=== PATIENT | male | born 1975 | race Caucasian/White ===

== ENCOUNTER 2016-12-31 15:40 | Emergency (ER) | payer OTHER, SELFPAY ==
[2016-12-31] MEDS ORDERED: Sodium Chloride 0.9% 1000 ML 1,000 ML IV STA ×2 (15:56→16:32)
--- NOTE | 2016-12-31 16:01 | ERPHSYRPT ---
- History of Present Illness Time Seen by Provider: 12/31/16 15:54 Source: patient Exam Limitations: no limitations Patient Subjective Stated Complaint: weakness Triage Nursing Assessment: states he was putting in a floor and got overheated adn dizzy. boss drove him home ' and dropped me off becasue he was mad becasue i couldnt help him finish a job' pt was outside and got nauseated and called ems. on arrival, dry heave x1. staets he ate lunch at noon and vomited shortly after. denies pain. 'i just got overheated' skin warm and dry Physician History: 41-year-old white male arrives with complaint generalized weakness nausea vomiting symptoms since this afternoon According to the patient he was putting in the floor he felt like he became overheated he became nauseous he has general weakness he has no focal weakness no problems speaking or moving. He feels like he became overheated. Past medical history. GERD. Past surgical history ORIF of right foot. Timing/Duration: today (this afternoon) Severity: moderate Modifying Factors: Improves With: other (patient feels like he got overheated while putting in the floor). Worsens With: eating, immobilization, medication, movement, acetaminophen, ibuprofen, nothing Associated Symptoms: nausea, vomiting, weakness, No abdominal pain, No shortness of breath, No heartburn, No diaphoresis, No cough, No chills, No chest pain, No fever, No headaches, No loss of appetite, No malaise, No rash, No syncope, No seizure Allergies/Adverse Reactions: No Known Drug Allergies Allergy (Verified 12/31/16 15:51) Home Medications: Esomeprazole Magnesium [Nexium] 40 mg PO DAILY 03/14/15 [History] Hx Tetanus, Diphtheria Vaccination/Date Given: Yes Hx Influenza Vaccination/Date Given: No Hx Pneumococcal Vaccination/Date Given: No Immunizations Up to Date: Yes - Review of Systems Constitutional: Malaise, Weakness, No Fever, No Chills, No Fatigue, No Lethargy , No Night Sweats, No Weight Loss Eyes: No Symptoms Ears, Nose, & Throat: No Symptoms Respiratory: Dyspnea, No Cough Cardiac: No Chest Pain, No Edema, No Syncope Abdominal/Gastrointestinal: Nausea, Vomiting, No Abdominal Pain, No Diarrhea, No Constipation, No Hematemesis, No Hematochezia, No Melena, No Dysphagia, No Appetite Changes Genitourinary Symptoms: No Dysuria Musculoskeletal: No Back Pain, No Neck Pain Skin: No Symptoms, No Rash Neurological: No Dizziness, No Focal Weakness, No Sensory Changes Psychological: No Symptoms Endocrine: No Symptoms All Other Systems: Reviewed and Negative - Past Medical History Pertinent Past Medical History: Yes Neurological History: No Pertinent History ENT History: No Pertinent History Cardiac History: No Pertinent History Respiratory History: No Pertinent History Endocrine Medical History: No Pertinent History Musculoskeletal History: No Pertinent History GI Medical History: GERD History: No Pertinent History Psycho-Social History: No Pertinent History Male Reproductive Disorders: No Pertinent History - Past Surgical History Past Surgical History: Yes Neuro Surgical History: No Pertinent History Cardiac: No Pertinent History Respiratory: No Pertinent History Gastrointestinal: No Pertinent History Genitourinary: No Pertinent History Musculoskeletal: Orthopedic Surgery Male Surgical History: No Pertinent History Other Surgical History: right leg fx with plate and screws placed - Social History Smoking Status: Never smoker Exposure to second hand smoke: Yes Drug Use: none Patient Lives Alone: No - Nursing Vital Signs Nursing Vital Signs: Initial Vital Signs Temperature 97.3 F Temperature Source Oral Pulse Rate 75 Respiratory Rate 18 Blood Pressure [] 113/68 Pain Intensity 0 - Physical Exam General Appearance: mild distress Eye Exam: PERRL/EOMI, eyes nml inspection Ears, Nose, Throat Exam: normal ENT inspection, TMs normal, pharynx normal, moist mucous membranes Neck Exam: normal inspection, non-tender, supple, full range of motion Respiratory Exam: normal breath sounds, lungs clear, No respiratory distress Cardiovascular Exam: regular rate/rhythm, normal heart sounds, normal peripheral pulses Gastrointestinal/Abdomen Exam: soft, normal bowel sounds, No tenderness, No mass Back Exam: normal inspection, normal range of motion, No CVA tenderness, No vertebral tenderness Extremity Exam: normal inspection, normal range of motion, pelvis stable Neurologic Exam: alert, oriented x 3, cooperative, normal mood/affect, nml cerebellar function, nml station & gait, sensation nml, No motor deficits Skin Exam: normal color, warm, dry, No rash Lymphatic Exam: No adenopathy SpO2 Interpretation: normal (100%) SpO2: 100 Oxygen Delivery: Room Air - Course Nursing assessment & vital signs reviewed: Yes EKG Interpreted by Me: RATE (68 bpm), Sinus Rhythm, NORMAL AXIS, Other (EKG: Sinus rhythm 68 bpm normal axis no acute ST or T wave changes no acute changes as compared to March 14, 2015 essentially normal EKG) - Radiology Exams Chest X-ray Interpretation: Discussed w/ radiologist, Other (no acute disease process) Ordered Tests: Active Orders 24 hr Category Date Time Status EKG-ER Only STAT Care 12/31/16 15:56 Active IV Insertion STAT Care 12/31/16 15:56 Active CHEST 1 VIEW (PORTABLE) Stat Exams 12/31/16 15:57 Completed AMYLASE Stat Lab 12/31/16 16:00 Completed CBC W DIFF Stat Lab 12/31/16 16:00 Completed CMP Stat Lab 12/31/16 16:00 Completed CULTURE,URINE Stat Lab 12/31/16 17:52 Received Ethyl Alcohol,Urine Stat Lab 12/31/16 17:52 Completed LIPASE Stat Lab 12/31/16 16:00 Completed TROPONIN Stat Lab 12/31/16 16:00 Completed UA W/ MICROSCOPIC Stat Lab 12/31/16 17:52 Completed Urine Triage Profile Stat Lab 12/31/16 17:52 Completed Medication Summary Discontinued Medications Generic Name Dose Route Start Last Admin Trade Name Freq PRN Reason Stop Dose Admin Sodium Chloride 1,000 mls @ 999 mls/hr 12/31/16 15:56 12/31/16 16:05 Sodium Chloride 0.9% 1000 Ml IV 12/31/16 16:56 999 mls/hr .Q1H1M STA Administration Sodium Chloride Confirm 12/31/16 16:04 Sodium Chloride 0.9% 1000 Ml Administered 12/31/16 16:05 Dose 1,000 mls @ ud .ROUTE .STK-MED ONE Sodium Chloride 1,000 mls @ 999 mls/hr 12/31/16 16:32 12/31/16 17:01 Sodium Chloride 0.9% 1000 Ml IV 12/31/16 17:32 999 mls/hr .Q1H1M STA Administration Sodium Chloride Confirm 12/31/16 16:37 Sodium Chloride 0.9% 1000 Ml Administered 12/31/16 16:38 Dose 1,000 mls @ ud .ROUTE .STK-MED ONE Ondansetron HCl 4 mg 12/31/16 16:14 12/31/16 16:17 Zofran 4 Mg/2 Ml Vial IV 12/31/16 16:15 4 mg STAT ONE Administration Ondansetron HCl Confirm 12/31/16 16:15 Zofran 4 Mg/2 Ml Vial Administered 12/31/16 16:16 Dose 4 mg .ROUTE .STK-MED ONE Potassium Chloride 20 meq 12/31/16 16:33 12/31/16 16:38 Klor Con 10 Meq PO 12/31/16 16:34 20 meq STAT ONE Administration Potassium Chloride Confirm 12/31/16 16:37 Klor Con 10 Meq Administered 12/31/16 16:38 Dose 20 meq PO .STK-MED ONE Lab/Rad Data: Laboratory Result Diagrams 12/31/16 16:00 12/31/16 16:00 Laboratory Results 12/31/16 12/31/16 12/31/16 Range/Units 17:52 17:52 17:52 WBC (4.0-10.5) K/mm3 RBC (4.1-5.6) M/mm3 Hgb (12.5-18.0) gm/dl Hct (42-50) % MCV (78-100) fl MCH (26-32) pg MCHC (32-36) g/dl RDW (11.5-14.0) % Plt Count (150-450) K/mm3 MPV (6-9.5) fl Gran % (36.0-66.0) % Lymphocytes % (24.0-44.0) % Monocytes % (0.0-12.0) % Eosinophils % (0.00-5.0) % Basophils % (0.0-0.4) % Basophils # (0-0.4) Sodium (136-145) mEq/L Potassium (3.5-5.1) mEq/L Chloride (98-107) mEq/L Carbon Dioxide (21-32) mEq/L Anion Gap (5-15) MEQ/L BUN (9-20) mg/dL Creatinine (0.55-1.30) mg/dl Estimated GFR ML/MIN Glucose (70-110) MG/DL Calcium (8.5-10.1) mg/dL Total Bilirubin (0.2-1.0) mg/dL AST (15-37) U/L ALT (12-78) U/L Alkaline Phosphatase (46-116) U/L Troponin I (0.000-0.056) ng/ml Serum Total Protein (6.4-8.2) gm/dL Albumin (3.4-5.0) g/dL Amylase (25-115) U/L Lipase (73-393) U/L Ur Collection Type VOID Urine Color YELLOW (YELLOW) Urine Appearance CLEAR (CLEAR) Urine pH 8.0 8.0 (5-6) Ur Specific Armstrong 1.015 (1.005-1.025) Urine Protein TRACE (Negative) Urine Ketones MODERATE (NEGATIVE) Urine Blood NEGATIVE (0-5) Sergio/ul Urine Nitrite NEGATIVE (NEGATIVE) Urine Bilirubin NEGATIVE (NEGATIVE) Urine Urobilinogen NORMAL (0-1) mg/dL Ur Leukocyte Esterase NEGATIVE (NEGATIVE) Urine Microscopic RBC 2-5 (0-2) /HPF Urine Microscopic WBC 15-25 (0-5) /HPF Ur Epithelial Cells FEW (FEW) /HPF Urine Bacteria FEW (NEGATIVE) /HPF Urine Mucus SLIGHT (NEGATIVE) /HPF Urine Glucose NEGATIVE (NEGATIVE) mg/dL Urine Opiates Level NEG. (NEGATIVE) Ur Methadone NEG. (NEGATIVE) Urine Barbiturates NEG. (NEGATIVE) Ur Phencyclidine (PCP) NEG. (NEGATIVE) Urine Amphetamine NEG. (NEGATIVE) U Benzodiazepine Level NEG. (NEGATIVE) Urine Cocaine NEG. (NEGATIVE) Urine Marijuana (THC) POS. (NEGATIVE) Urine Ethyl Alcohol < 3 (0.00-20) mg/dl Specimen Received 12/31/16 1800 12/31/16 12/31/16 Range/Units 16:00 16:00 WBC 11.2 H (4.0-10.5) K/mm3 RBC 5.08 (4.1-5.6) M/mm3 Hgb 14.9 (12.5-18.0) gm/dl Hct 42.8 (42-50) % MCV 84.3 (78-100) fl MCH 29.3 (26-32) pg MCHC 34.8 (32-36) g/dl RDW 13.3 (11.5-14.0) % Plt Count 261 (150-450) K/mm3 MPV 10.2 H (6-9.5) fl Gran % 78.0 H (36.0-66.0) % Lymphocytes % 14.8 L (24.0-44.0) % Monocytes % 6.3 (0.0-12.0) % Eosinophils % 0.7 (0.00-5.0) % Basophils % 0.2 (0.0-0.4) % Basophils # 0.02 (0-0.4) Sodium 144 (136-145) mEq/L Potassium 3.3 L (3.5-5.1) mEq/L Chloride 106 (98-107) mEq/L Carbon Dioxide 20.1 L (21-32) mEq/L Anion Gap 21.4 H (5-15) MEQ/L BUN 22 H (9-20) mg/dL Creatinine 1.40 H (0.55-1.30) mg/dl Estimated GFR 59 ML/MIN Glucose 156 H (70-110) MG/DL Calcium 9.5 (8.5-10.1) mg/dL Total Bilirubin 0.70 (0.2-1.0) mg/dL AST 23 (15-37) U/L ALT 26 (12-78) U/L Alkaline Phosphatase 58 (46-116) U/L Troponin I < 0.017 (0.000-0.056) ng/ml Serum Total Protein 7.9 (6.4-8.2) gm/dL Albumin 4.2 (3.4-5.0) g/dL Amylase 47 (25-115) U/L Lipase 113 (73-393) U/L Ur Collection Type Urine Color (YELLOW) Urine Appearance (CLEAR) Urine pH (5-6) Ur Specific Armstrong (1.005-1.025) Urine Protein (Negative) Urine Ketones (NEGATIVE) Urine Blood (0-5) Sergio/ul Urine Nitrite (NEGATIVE) Urine Bilirubin (NEGATIVE) Urine Urobilinogen (0-1) mg/dL Ur Leukocyte Esterase (NEGATIVE) Urine Microscopic RBC (0-2) /HPF Urine Microscopic WBC (0-5) /HPF Ur Epithelial Cells (FEW) /HPF Urine Bacteria (NEGATIVE) /HPF Urine Mucus (NEGATIVE) /HPF Urine Glucose (NEGATIVE) mg/dL Urine Opiates Level (NEGATIVE) Ur Methadone (NEGATIVE) Urine Barbiturates (NEGATIVE) Ur Phencyclidine (PCP) (NEGATIVE) Urine Amphetamine (NEGATIVE) U Benzodiazepine Level (NEGATIVE) Urine Cocaine (NEGATIVE) Urine Marijuana (THC) (NEGATIVE) Urine Ethyl Alcohol (0.00-20) mg/dl Specimen Received - Progress Progress: improved Progress Note: 12/31/16 18:31 Patient is feeling better after 2 L of normal saline. Patient does have 15-25 white cells in his urine. He is able to keep fluids down at this time. Will discharge with Bactrim, Zofran patient to rest tomorrow. - Departure Time of Disposition: 18:32 Departure Disposition: Home Clinical Impression: Heat exhaustion Qualifiers: Encounter type: initial encounter Qualified Code(s): T67.5XXA - Heat exhaustion , unspecified, initial encounter Nausea and vomiting Qualifiers: Vomiting type: unspecified Vomiting Intractability: non-intractable Qualified Code(s): R11.2 - Nausea with vomiting, unspecified UTI (urinary tract infection) Qualifiers: Urinary tract infection type: site unspecified Hematuria presence: without hematuria Qualified Code(s): N39.0 - Urinary tract infection, site not specified Condition: Fair Critical Care Time: No Additional Instructions: Return home. Plenty of fluids clear fluids only 24-48 hours if nausea and vomiting. Bactrim DS one orally twice a day for 10 days. Zofran one orally every 4-6 hours as needed for nausea or vomiting. Follow-up with your family doctor. Return for acute distress or for severe symptoms. Prescriptions: Ondansetron [Zofran Odt] 4 mg PO Q4-6HPRN PRN #10 tab.rapdis PRN Reason: nausea and voming Smz/Tmp Ds Tablet [Bactrim Ds Tablet] 1 tab PO BID #20 tablet
[2016-12-31] MEDS ORDERED: Sodium Chloride 0.9% 1000 ML 1,000 ML ONE ×2 (16:04→16:37)
[2016-12-31 16:12] LABS: BASOPHIL % 0.2 % (0.0-0.4); Eosinophil % 0.7 % (0.00-5.0); Lymphocytes % 14.8 % (24.0-44.0); Mean Cell Volume 84.3 fl (78-100); Mean Corpuscular Hemoglobin 29.3 pg (26-32); Mean Platelet Volume 10.2 fl (6-9.5); Monocytes % 6.3 % (0.0-12.0); Platelet Count 261 K/mm3 (150-450); Red Blood Count 5.08 M/mm3 (4.1-5.6); Red Cell Distribution Width 13.3 % (11.5-14.0); White Blood Count 11.2 K/mm3 (4.0-10.5)
--- NOTE | 2016-12-31 16:13 | XRAY ---
Indication: Short of breath. Vomiting. Weakness. Comparison: May 19, 2014. Portable chest better inflated today and remains clear. Heart and mediastinal structures within normal limits for AP portable technique. Bony thorax intact. Impression: Nonacute chest.
[2016-12-31] MEDS ORDERED: Zofran 4 MG/2 ML VIAL IV ONE (16:14)
[2016-12-31] MEDS ORDERED: Zofran 4 MG/2 ML VIAL ONE (16:15)
[2016-12-31 16:28] LABS: ALBUMIN 4.2 g/dL (3.4-5.0); ALKALINE PHOSPHATASE 58 U/L (46-116); ANION GAP 21.4 MEQ/L (5-15); BLOOD UREA NITROGEN 22 mg/dL (9-20); CHLORIDE 106 mEq/L (98-107); Carbon Dioxide 20.1 mEq/L (21-32); Glucose 156 MG/DL (70-110); LIPASE 113 U/L (73-393); Potassium 3.3 mEq/L (3.5-5.1); SGOT/AST 23 U/L (15-37); SGPT/ALT 26 U/L (12-78); SODIUM 144 mEq/L (136-145); Total Protein 7.9 gm/dL (6.4-8.2)
[2016-12-31 16:29] LABS: TROPONIN < 0.017 ng/ml (0.000-0.056)
[2016-12-31] MEDS ORDERED: Klor Con 10 MEQ PO ONE ×2 (16:33→16:37)
[2016-12-31 18:25] LABS: Bilirubin NEGATIVE (NEGATIVE); Blood NEGATIVE Ery/ul (0-5); COMPLETE URINE MICROSCOPIC? YES; Collection Type VOID; Glucose NEGATIVE (NEGATIVE); Leukocyte Esterase NEGATIVE (NEGATIVE); Mucus SLIGHT /HPF (NEGATIVE); WBC 15-25 /HPF (0-5)
[2016-12-31 18:26] LABS: ADD URINE CULTURE? YES (NO); Bacteria FEW /HPF (NEGATIVE); Epithelial Cells FEW /HPF (FEW)
[2016-12-31 18:55] VITALS: BP 126/70; PULSE 78; O2SAT 98
== END 2016-12-31 18:50 | disposition home or self-care (01) ==
LOC: ED 15:40
DX: T67.5XXA Heat exhaustion, unspecified, initial encounter (principal); R11.2 Nausea with vomiting, unspecified; N39.0 Urinary tract infection, site not specified
CPT/HCPCS: 36000; 36415; 71010; 80053; 80307; 80320; 81000; 82150; 83690; 83986; 84484; 85025; 87086; 93005; 96360; 96361; 96374; 99284; 99285; J2405; A9270-GY

== ENCOUNTER 2019-09-26 06:46 | Day surgery (SDC) | payer BC ==
[~2019-09-26 06:46] MED LIST: Lactated Ringers 1,000 ML IV ONE; Lactated Ringers 1,000 ML IV SCH
[2019-09-26] MEDS ORDERED: Lactated Ringers 1,000 ML IV SCH (07:00)
[2019-09-26] MEDS ORDERED: DIPRIVAN 200 MG/20 ML IV ONE ×2 (07:15→08:14)
[2019-09-26] MEDS ORDERED: Ketamine HCl 50 MG/ML ONE (07:17)
[2019-09-26 09:22] VITALS: BP 118/65; PULSE 64; O2SAT 95
--- NOTE | 2019-09-26 10:44 | OP ---
SURGERY DATE/TIME: 09/26/2019 0759 PREOPERATIVE DIAGNOSIS: Change in bowel habits and abdominal pain. POSTOPERATIVE DIAGNOSIS: Small transverse colon polyp and early sigmoid diverticulosis. PROCEDURE: Colonoscopy with cold forceps biopsy. SURGEON: Dr. Rivera. ANESTHESIA: MAC. Medications given by anesthesia department. HISTORY: The patient is a 43 year-old white male who reports that he has been problems with his bowels over the past month. He reports abdominal pain and change in his bowels appears to be like movement like toothpaste out of a tube. Afterwards he is having problems with diarrhea and occasionally seeing blood on the toilet paper when he wipes. The patient was appraised of the risks of the procedure including the risk of perforation, phlebitis, untoward reaction to medication, bleeding and missed lesions. The patient verbalized his understanding and desired to have the procedure performed. DESCRIPTION OF PROCEDURE: The patient was given the medications by the anesthesia department. He had continuous pulse oximetry, ECG monitoring, intermittent blood pressure monitoring and tidal CO2 monitoring during the examination. He was placed in the left lateral decubitus position. A digital rectal examination was performed and revealed normal anal sphincter tone, no masses and normal prostate. The flexible Olympus pediatric colonoscope was used to intubate the rectum. A view of the colon was developed sequentially to the cecum. Upon insertion and withdrawal including retroflex view in the rectum was noted a small polyp in the transverse colon that appeared to have early hyperplastic versus adenomatous change. The patient also had small diverticula noted in the sigmoid colon. The scope was removed from the patient who tolerated the procedure well and was sent back to OP recovery in good condition. The prep was noted to be good.
== END 2019-09-26 09:25 | disposition home or self-care (01) ==
LOC: SDC 06:46
PROVIDERS: ATTEND Family Medicine
DX: D12.3 Benign neoplasm of transverse colon (principal); K57.30 Diverticulosis of large intestine without perforation or abscess without bleeding; R19.4 Change in bowel habit; R10.9 Unspecified abdominal pain
CPT/HCPCS: 88305; J2704

== ENCOUNTER 2022-01-08 12:32 | Emergency (ER) | payer BC ==
--- NOTE | 2022-01-08 12:42 | ERPHSYRPT ---
- History of Present Illness Time Seen by Provider: 01/08/22 12:42 Source: patient Exam Limitations: no limitations Physician History: This is a 46-year-old white male who started a new job 1 week ago in the environment he works in his very hot and humid. 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 He became dizzy today. Patient denies chest pain and he denies shortness of breath. He does have a history of gastroesophageal reflux disease. He is worked several days in the row and today was the first day for dizziness. He denies head injury Timing/Duration: today Severity: moderate Character of Deficits: none Deficits: no difficulties Baseline/Normal Cognition: alert oriented x 3 Current Cognition: alert oriented x 3 Baseline Gait: walks w/o assistance Associated Symptoms: denies symptoms Allergies/Adverse Reactions: No Known Drug Allergies Allergy (Verified 01/08/22 12:38) Home Medications: Pantoprazole Sodium [Protonix] 40 mg PO DAILY 09/15/19 [History] Hx Tetanus, Diphtheria Vaccination/Date Given: Yes Hx Influenza Vaccination/Date Given: No Hx Pneumococcal Vaccination/Date Given: No Travel Risk - International Travel Have you traveled outside of the country in past 3 weeks: No - Coronavirus Screening Are you exhibiting any of the following symptoms?: No Close contact with a COVID-19 positive Pt in past 14-21 Days: No - Review of Systems Constitutional: No Symptoms Eyes: No Symptoms Ears, Nose, & Throat: No Symptoms Respiratory: No Symptoms Cardiac: No Symptoms Abdominal/Gastrointestinal: No Symptoms Genitourinary Symptoms: No Symptoms Musculoskeletal: No Symptoms Skin: No Symptoms Neurological: Dizziness Psychological: No Symptoms Endocrine: No Symptoms Hematologic/Lymphatic: No Symptoms Immunological/Allergic: No Symptoms All Other Systems: Reviewed and Negative - Past Medical History Pertinent Past Medical History: Yes Neurological History: No Pertinent History ENT History: No Pertinent History Cardiac History: No Pertinent History Respiratory History: No Pertinent History Endocrine Medical History: No Pertinent History Musculoskeletal History: No Pertinent History GI Medical History: GERD History: No Pertinent History Psycho-Social History: No Pertinent History Male Reproductive Disorders: No Pertinent History - Past Surgical History Past Surgical History: No Neuro Surgical History: No Pertinent History Cardiac: No Pertinent History Respiratory: No Pertinent History Gastrointestinal: No Pertinent History Genitourinary: No Pertinent History Musculoskeletal: No Pertinent History Male Surgical History: No Pertinent History Other Surgical History: right leg fx with plate and screws placed - Social History Smoking Status: Never smoker Exposure to second hand smoke: Yes Drug Use: none Patient Lives Alone: No - Nursing Vital Signs Nursing Vital Signs: Initial Vital Signs Temperature 97.2 F 01/08/22 12:38 Pulse Rate 85 01/08/22 12:38 Respiratory Rate 18 01/08/22 12:38 Blood Pressure 120/86 01/08/22 12:38 O2 Sat by Pulse Oximetry 100 01/08/22 12:38 Pain Scale Pain Intensity 0 - Vilma Coma Scale Best Eye Response ([place]): (4) open spontaneously Best Verbal Response ([place]): (5) oriented Best Motor Response ([place]): (6) obeys commands Vilma Total: 15 - Physical Exam General Appearance: no apparent distress, alert, anxiety Eye Exam: bilateral eye: normal inspection, PERRL, EOMI Ears, Nose, Throat Exam: normal ENT inspection, moist mucous membranes Neck Exam: normal inspection, non-tender, supple, full range of motion Respiratory: normal breath sounds, lungs clear, airway intact, No chest tenderness, No respiratory distress Cardiovascular: regular rate/rhythm, normal heart sounds, normal peripheral pulses Gastrointestinal: soft, normal bowel sounds, No tenderness Rectal Exam: not done Back Exam: normal inspection, normal range of motion, No CVA tenderness, No vertebral tenderness Extremity Exam: normal inspection, normal range of motion, pelvis stable Mental Status: alert, oriented x 3, 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 Exam: normal hearing, normal speech, PERRL Coordination/Gait: normal finger to nose, normal gait, normal cerebellar function Motor/Sensory: no motor deficit, no sensory deficit Skin Exam: normal color, warm, dry SpO2 Interpretation: normal O2 Delivery: Room Air - Course Nursing assessment & vital signs reviewed: Yes Ordered Tests: Active Orders 24 hr Category Date Time Status EKG-ER Only STAT Care 01/08/22 13:00 Active IV Insertion STAT Care 01/08/22 13:00 Active CBC W DIFF Stat Lab 01/08/22 13:00 Completed CMP Stat Lab 01/08/22 13:20 Completed ETHYL ALCOHOL Stat Lab 01/08/22 13:20 Completed MAGNESIUM Stat Lab 01/08/22 13:20 Completed TROPONIN Q3H Lab 01/08/22 13:20 Completed TROPONIN Q3H Lab 01/08/22 16:00 Ordered TROPONIN Q3H Lab 01/08/22 19:00 Ordered TROPONIN Q3H Lab 01/08/22 22:00 Ordered TROPONIN Q3H Lab 01/09/22 01:00 Ordered UA W/RFX CULTURE Stat Lab 01/08/22 14:11 Completed Urine Triage Profile Stat Lab 01/08/22 14:10 Completed Medication Summary Discontinued Medications Generic Name Dose Route Start Last Admin Trade Name Skye PRN Reason Stop Dose Admin Sodium Chloride 1,000 mls @ 999 mls/hr 01/08/22 13:00 01/08/22 14:18 Sodium Chloride 0.9% 1000 Ml IV 01/08/22 14:00 Infused .Q1H1M STA Infusion Sodium Chloride Confirm 01/08/22 13:08 Sodium Chloride 0.9% 1000 Ml Administered 01/08/22 13:09 Dose 1,000 mls @ ud .ROUTE .STK-MED ONE Lab/Rad Data: Laboratory Result Diagrams 01/08/22 13:00 01/08/22 13:20 Laboratory Results 01/08/22 01/08/22 01/08/22 Range/Units 14:11 14:10 13:20 WBC (4.0-10.5) x10^3/uL RBC (4.1-5.6) x10^6/uL Hgb (12.5-18.0) g/dL Hct (42-50) % MCV (78-100) fL MCH (26-32) pg MCHC (32-36) g/dL RDW (11.5-14.0) % Plt Count (150-450) x10^3/uL MPV (7.5-11.0) fL Gran % (36.0-66.0) % Immature Gran % (Auto) (0.00-0.4) % Nucleat RBC Rel Count (0.00-0.1) % Eos # (Auto) (0-0.5) x10^3/uL Immature Gran # (Auto) (0.00-0.03) x10^3u/L Absolute Lymphs (auto) (1.0-4.6) x10^3/uL Absolute Monos (auto) (0.0-1.3) x10^3/uL Absolute Nucleated RBC (0.00-0.01) x10^3u/L Lymphocytes % (24.0-44.0) % Monocytes % (0.0-12.0) % Eosinophils % (0.00-5.0) % Basophils % (0.0-0.4) % Absolute Granulocytes (1.4-6.9) x10^3/uL Basophils # (0-0.4) x10^3/uL Sodium 138 (137-145) mmol/L Potassium 3.5 (3.5-5.1) mmol/L Chloride 105 (98-107) mmol/L Carbon Dioxide 23 (22-30) mmol/L Anion Gap 14.5 (5-15) MEQ/L BUN 20 (9-20) mg/dL Creatinine 1.10 (0.66-1.25) mg/dL Estimated GFR > 60.0 ML/MIN Glucose 115 H (74-106) mg/dL Calcium 9.5 (8.4-10.2) mg/dL Magnesium 1.8 (1.6-2.3) mg/dL Total Bilirubin 0.70 (0.2-1.3) mg/dL AST 35 (17-59) U/L ALT 28 (0-50) U/L Alkaline Phosphatase 71 (38-126) U/L Troponin I (0.000-0.034) ng/mL Serum Total Protein 7.8 (6.3-8.2) g/dL Albumin 4.4 (3.5-5.0) g/dL Urinalys Dipstick Clnc MAIN LAB Urine Color YELLOW (YELLOW) Urine Appearance CLEAR (CLEAR) Urine pH 7.5 (5-6) Ur Specific [place] 1.020 (1.005-1.025) POC Urine Protein Conf NEGATIVE (Negative) Urine Ketones NEGATIVE (NEGATIVE) Urine Nitrite NEGATIVE (NEGATIVE) Urine Bilirubin NEGATIVE (NEGATIVE) Urine Urobilinogen 0.2 (0-1) mg/dL Urine Leukocytes NEGATIVE (NEGATIVE) Urine WBC (Auto) 0-2 (0-5) /HPF Urine RBC (Auto) 0-2 (0-2) /HPF U Epithel Cells (Auto) RARE (FEW) /HPF Urine Bacteria (Auto) NONE (NEGATIVE) /HPF Urine RBC NEGATIVE (0-5) Sergio/ul Urine Mucus (Auto) SLIGHT (NEGATIVE) /HPF Ur Culture Indicated? NO Urine Glucose NEGATIVE (NEGATIVE) mg/dL Urine Opiates Level NEGATIVE (NEGATIVE) Ur Methadone NEGATIVE (NEGATIVE) Urine Barbiturates NEGATIVE (NEGATIVE) Ur Phencyclidine (PCP) NEGATIVE (NEGATIVE) Urine Amphetamine NEGATIVE (NEGATIVE) U Benzodiazepine Level NEGATIVE (NEGATIVE) Urine Cocaine NEGATIVE (NEGATIVE) Urine Marijuana (THC) POSITIVE (NEGATIVE) Ethyl Alcohol < 10 (0-10) mg/dL 01/08/22 01/08/22 Range/Units 13:20 13:00 WBC 7.7 (4.0-10.5) x10^3/uL RBC 5.01 (4.1-5.6) x10^6/uL Hgb 14.9 (12.5-18.0) g/dL Hct 43.3 (42-50) % MCV 86.4 (78-100) fL MCH 29.7 (26-32) pg MCHC 34.4 (32-36) g/dL RDW 12.7 (11.5-14.0) % Plt Count 267 (150-450) x10^3/uL MPV 9.8 (7.5-11.0) fL Gran % 63.3 (36.0-66.0) % Immature Gran % (Auto) 0.4 (0.00-0.4) % Nucleat RBC Rel Count 0.0 (0.00-0.1) % Eos # (Auto) 0.13 (0-0.5) x10^3/uL Immature Gran # (Auto) 0.03 (0.00-0.03) x10^3u/L Absolute Lymphs (auto) 2.06 (1.0-4.6) x10^3/uL Absolute Monos (auto) 0.57 (0.0-1.3) x10^3/uL Absolute Nucleated RBC 0.00 (0.00-0.01) x10^3u/L Lymphocytes % 26.7 (24.0-44.0) % Monocytes % 7.4 (0.0-12.0) % Eosinophils % 1.7 (0.00-5.0) % Basophils % 0.5 (0.0-0.4) % Absolute Granulocytes 4.88 (1.4-6.9) x10^3/uL Basophils # 0.04 (0-0.4) x10^3/uL Sodium (137-145) mmol/L Potassium (3.5-5.1) mmol/L Chloride (98-107) mmol/L Carbon Dioxide (22-30) mmol/L Anion Gap (5-15) MEQ/L BUN (9-20) mg/dL Creatinine (0.66-1.25) mg/dL Estimated GFR ML/MIN Glucose (74-106) mg/dL Calcium (8.4-10.2) mg/dL Magnesium (1.6-2.3) mg/dL Total Bilirubin (0.2-1.3) mg/dL AST (17-59) U/L ALT (0-50) U/L Alkaline Phosphatase (38-126) U/L Troponin I < 0.012 (0.000-0.034) ng/mL Serum Total Protein (6.3-8.2) g/dL Albumin (3.5-5.0) g/dL Urinalys Dipstick Clnc Urine Color (YELLOW) Urine Appearance (CLEAR) Urine pH (5-6) Ur Specific [place] (1.005-1.025) POC Urine Protein Conf (Negative) Urine Ketones (NEGATIVE) Urine Nitrite (NEGATIVE) Urine Bilirubin (NEGATIVE) Urine Urobilinogen (0-1) mg/dL Urine Leukocytes (NEGATIVE) Urine WBC (Auto) (0-5) /HPF Urine RBC (Auto) (0-2) /HPF U Epithel Cells (Auto) (FEW) /HPF Urine Bacteria (Auto) (NEGATIVE) /HPF Urine RBC (0-5) Sergio/ul Urine Mucus (Auto) (NEGATIVE) /HPF Ur Culture Indicated? Urine Glucose (NEGATIVE) mg/dL Urine Opiates Level (NEGATIVE) Ur Methadone (NEGATIVE) Urine Barbiturates (NEGATIVE) Ur Phencyclidine (PCP) (NEGATIVE) Urine Amphetamine (NEGATIVE) U Benzodiazepine Level (NEGATIVE) Urine Cocaine (NEGATIVE) Urine Marijuana (THC) (NEGATIVE) Ethyl Alcohol (0-10) mg/dL - Progress Progress: improved Progress Note: 01/08/22 15:00 Patient's dizziness has resolved. Counseled pt/family regarding: lab results, diagnosis, need for follow-up - Departure Departure Disposition: Home Clinical Impression: Dizziness Condition: Stable Critical Care Time: No Referrals: BRODY MILLER [Primary Care Provider] - Follow up/PCP as directed Additional Instructions: Drink plenty of fluids. Avoid excessive heat over the next 24 to 48 hours. Follow-up with your primary provider for further evaluation and management
[2022-01-08 12:43] VITALS: BP 120/86; PULSE 85; O2SAT 100
[2022-01-08] MEDS ORDERED: Sodium Chloride 0.9% 1000 ML 1,000 ML IV STA (13:00)
[2022-01-08] MEDS ORDERED: Sodium Chloride 0.9% 1000 ML 1,000 ML ONE (13:08)
[2022-01-08 13:36] LABS: Absolute Neutrophil Ct (ANC) 4.88 x10^3/uL (1.4-6.9); Basophil (Absolute #) 0.04 x10^3/uL (0-0.4); Eosinophil % 1.7 % (0.00-5.0); Eosinophil (Absolute #) 0.13 x10^3/uL (0-0.5); Hematocrit 43.3 % (42-50); Hemoglobin 14.9 g/dL (12.5-18.0); Lymphocyte (Absolute #) 2.06 x10^3/uL (1.0-4.6); Lymphocytes % 26.7 % (24.0-44.0); Mean Cell Volume 86.4 fL (78-100); Mean Corpuscular Hemoglobin 29.7 pg (26-32); Mean Corpuscular Hgb Concent. 34.4 g/dL (32-36); Mean Platelet Volume 9.8 fL (7.5-11.0); Monocyte (Absolute #) 0.57 x10^3/uL (0.0-1.3); Monocytes % 7.4 % (0.0-12.0); Neutrophil % 63.3 % (36.0-66.0); Platelet Count 267 x10^3/uL (150-450); Red Blood Count 5.01 x10^6/uL (4.1-5.6); Red Cell Distribution Width 12.7 % (11.5-14.0); White Blood Count 7.7 x10^3/uL (4.0-10.5)
[2022-01-08 13:54] LABS: ALBUMIN 4.4 g/dL (3.5-5.0); ALKALINE PHOSPHATASE 71 U/L (38-126); ANION GAP 14.5 MEQ/L (5-15); BLOOD UREA NITROGEN 20 mg/dL (9-20); CHLORIDE 105 mmol/L (98-107); Calcium 9.5 mg/dL (8.4-10.2); Carbon Dioxide 23 mmol/L (22-30); EST GLOMERULAR FILTRATION RATE > 60.0 ML/MIN; ETHYL ALCOHOL < 10 mg/dL (0-10); Glucose 115 mg/dL (74-106); MAGNESIUM 1.8 mg/dL (1.6-2.3); Potassium 3.5 mmol/L (3.5-5.1); SGOT/AST 35 U/L (17-59); SGPT/ALT 28 U/L (0-50); SODIUM 138 mmol/L (137-145); Total Protein 7.8 g/dL (6.3-8.2)
[2022-01-08 14:37] LABS: Epithelial Cells RARE /HPF (FEW); Mucus SLIGHT /HPF (NEGATIVE); RBC 0-2 /HPF (0-2); WBC 0-2 /HPF (0-5)
[2022-01-08 14:38] LABS: Appearance CLEAR (CLEAR); Bilirubin NEGATIVE (NEGATIVE); Glucose NEGATIVE (NEGATIVE); Ketones NEGATIVE (NEGATIVE); Nitrite NEGATIVE (NEGATIVE); Ph 7.5 (5-6); Protein,Urine Dip NEGATIVE (Negative); RBC NEGATIVE Ery/ul (0-5); Urine Cultured Indicated? NO; Urobilinogen 0.2 mg/dL (0-1)
[2022-01-08 14:39] LABS: Dipstick done @ ? MAIN LAB
[2022-01-08 14:56] LABS: Amphetamine,Urine NEGATIVE (NEGATIVE); Barbiturate,Urine NEGATIVE (NEGATIVE); Benzodiazepine,Urine NEGATIVE (NEGATIVE); Cocaine,Urine NEGATIVE (NEGATIVE); Methadone,Urine NEGATIVE (NEGATIVE); Opiate,Urine NEGATIVE (NEGATIVE); PCP,Urine NEGATIVE (NEGATIVE); THC,Urine POSITIVE (NEGATIVE)
== END 2022-01-08 15:18 | disposition home or self-care (01) ==
LOC: ED 12:32
DX: R42 Dizziness and giddiness (principal); Z57.8 Occupational exposure to other risk factors
CPT/HCPCS: 36000; 36415; 80053; 80307; 81015; 83735; 84484; 85025; 93005; 99284; G0480

== ENCOUNTER 2024-02-03 10:53 | Emergency (ER) | payer BC ==
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
[2024-02-03 11:07] VITALS: BP 130/88; RESP 16; TEMP 97.2
[2024-02-03] MEDS ORDERED: XYLOCAINE 1% HCL 20 ML MDV ONE (11:22)
[2024-02-03] MEDS: XYLOCAINE 1% HCL 20 ML MDV IJ ONE (11:33)
[2024-02-03] MEDS ORDERED: BACIGUENT PACKET ONE (12:02)
[2024-02-03] MEDS: BACIGUENT PACKET TP ONE (12:03)
[2024-02-03 12:07] VITALS: PULSE 78; O2SAT 98
== END 2024-02-03 12:10 | disposition home or self-care (01) ==
LOC: ED 10:53
DX: S01.111A Laceration without foreign body of right eyelid and periocular area, initial encounter (principal); V28.49XA Other motorcycle driver injured in noncollision transport accident in traffic accident, initial encounter; R51.9 Headache, unspecified
CPT/HCPCS: 12013; 96372; 99283; A9270-GY